=== PATIENT | female | born 1950 | race Caucasian/White ===

== ENCOUNTER 2017-08-24 07:51 | Day surgery (SDC) | payer OTHER ==
[2017-08-24 10:32] LABS: ADD MAN DIFF? NO
[2017-08-24 10:35] LABS: WHITE BLOOD COUNT 8.6 10^3/ul (4.8-10.8)
[2017-08-24 10:35] LABS: BASOPHILS % 0.3 % (0.0-2.0); EOSINOPHILS % 0.1 % (0.0-7.0); HEMATOCRIT 42.3 % (37.0-47.0); HEMOGLOBIN 14.4 g/dl (12.0-16.0); LYMPHOCYTES # 1.8 10^3/ul (0.8-2.9); LYMPHOCYTES % 20.6 % (15.0-51.0); MEAN CORPUSCULAR HEMOGLOBIN 29.3 pg (29.0-33.0); MEAN PLATELET VOLUME 9.3 fl (7.4-10.4); MONOCYTE # 0.4 10^3/ul (0.3-0.9); MONOCYTES % 4.4 % (0.0-11.0); NEUTROPHIL # 6.4 10^3/ul (1.6-7.5); NEUTROPHILS % 74.4 % (39.0-77.0); PLATELET COUNT 300 10^3/UL (140-415); RED BLOOD COUNT 4.92 10^6/ul (4.20-5.40); RED CELL DISTRIBUTION WIDTH 12.1 % (11.5-14.5)
[2017-08-24] MEDS: hydrALAzine 20 MG INJ IV (10:36)
[2017-08-24 10:56] LABS: ALANINE AMINOTRANSFERASE 32 IU/L (13-69); ALBUMIN 4.6 g/dl (3.3-4.9); ALBUMIN/GLOBULIN RATIO 1.15; ALKALINE PHOSPHATASE 107 IU/L (42-121); ANION GAP 16 (8-16); ASPARTATE AMINO TRANSFERASE 29 IU/L (15-46); BILIRUBIN,INDIRECT 0.7 mg/dl (0-1.1); BILIRUBIN,TOTAL 0.7 mg/dl (0.2-1.3); CARBON DIOXIDE 28 mmol/L (21-31); CHLORIDE 105 mmol/L (97-110); GLUCOSE 135 mg/dl (70-220); TOTAL PROTEIN 8.6 g/dl (6.1-8.1)
[2017-08-24] MEDS ORDERED: ISOSULFAN BLUE 1% 5 ML INJ SC (11:13)
[2017-08-24 11:16] LABS: BLOOD UREA NITROGEN 14 mg/dl (7-20); CALCIUM 9.8 mg/dl (8.4-10.2); CREATININE 0.65 mg/dl (0.44-1.00); POTASSIUM 3.6 mmol/L (3.5-5.1)
[2017-08-24 11:19] LABS: SODIUM 145 mmol/L (135-144)
[2017-08-24 11:20] LABS: INR 0.95; PROTIME 12.8 Sec (11.9-14.9)
[2017-08-24 11:21] LABS: PARTIAL THROMBOPLASTIN TIME 28.6 Sec (25.0-35.0)
[2017-08-24] MEDS ORDERED: LABETALOL HCL 20MG INJ (11:34)
[2017-08-24] MEDS ORDERED: ROCURONIUM 50 MG INJ (11:38)
[2017-08-24] MEDS ORDERED: GLYCOPYRROLATE 0.4 MG INJ (11:38)
[2017-08-24] MEDS ORDERED: MIDAZOLAM 1 MG/ML 2 ML INJ (11:38)
[2017-08-24] MEDS ORDERED: CEFAZOLIN 1 GM INJ (11:38)
[2017-08-24] MEDS ORDERED: PHENYLephrine (100 MCG/ML) 5ML SYG (11:38)
[2017-08-24] MEDS ORDERED: FENTAnyl 50 MCG/ML VIAL ×2 (11:38→12:07)
[2017-08-24] MEDS ORDERED: NEOSTIGMINE 3 MG/3 ML SYRINGE (11:38)
[2017-08-24] MEDS ORDERED: PROPOFOL 20 ML (11:38)
[2017-08-24] MEDS ORDERED: DEXAMETHASONE 4 MG/ML 1 ML INJ (11:39)
[2017-08-24] MEDS ORDERED: ONDANSETRON 4 MG INJ (11:39)
[2017-08-24] MEDS: ISOSULFAN BLUE 1% 5 ML INJ SC (11:45)
[2017-08-24] MEDS ORDERED: DIPHENHYDRAMINE 50 MG INJ IV (12:00)
[2017-08-24] MEDS ORDERED: IPRATROPIUM (NEB) 0.5 MG/2.5 ML AMP HHN (12:00)
[2017-08-24] MEDS ORDERED: ALBUTEROL 0.083% (NEB) 2.5 MG/3 ML AMP HHN (12:00)
[2017-08-24] MEDS ORDERED: FENTAnyl 50 MCG/ML VIAL IV ×3 (12:00)
[2017-08-24] MEDS ORDERED: HYDROmorphONE 1 MG/5 ML IV SYRINGE IV ×3 (12:00)
[2017-08-24] MEDS ORDERED: OXYCODONE/ACETAMINOPHEN (5/325) TAB PO ×2 (12:00)
[2017-08-24] MEDS ORDERED: EPHEDrine SULFATE 50 MG/5 ML SYG IV (12:00)
[2017-08-24] MEDS ORDERED: LABETALOL HCL 20MG INJ IV (12:00)
[2017-08-24] MEDS ORDERED: MIDAZOLAM 1 MG/ML 2 ML INJ IV (12:00)
[2017-08-24] MEDS ORDERED: hydrALAzine 20 MG INJ IV (12:00)
[2017-08-24] MEDS ORDERED: TRIMETHOBENZAMIDE 100 MG/ML VIAL IM (12:00)
[2017-08-24] MEDS ORDERED: METOCLOPRAMIDE 10 MG INJ (12:47)
[2017-08-24] MEDS: ONDANSETRON 4 MG INJ IV (13:20)
[2017-08-24] MEDS: MEPERIDINE 25 MG INJ IV (13:20)
== END 2017-08-24 15:10 | disposition home or self-care (01) ==
LOC: SDS 07:51
DX: C50.912 Malignant neoplasm of unspecified site of left female breast (principal); R59.9 Enlarged lymph nodes, unspecified; I10 Essential (primary) hypertension; E78.00 Pure hypercholesterolemia, unspecified
CPT/HCPCS: 19301; 71045; 80053; 85025; 85610; 85730; 88307; 88331; 88342; 93005